=== PATIENT | male | born 1965 | race Caucasian/White ===

== ENCOUNTER → 2016-04-06 | Day surgery (SDC) | payer OTHER ==
[~2016-04-06] MED LIST: LIDOCAINE 1% INJ-PF (10 MG/ML) 30 ML SDV ONE
== END ==
LOC: RAD 12:31
PROVIDERS: ATTEND Orthopaedic Surgery
DX: S43.432A Superior glenoid labrum lesion of left shoulder, initial encounter (principal); X58.XXXA Exposure to other specified factors, initial encounter
CPT/HCPCS: 73222; 73040; 77002; A9576; J3490

== ENCOUNTER → 2017-08-31 | Day surgery (SDC) | payer OTHER ==
--- NOTE | 2017-08-31 14:02 | RADIOLOGY REPORT (SQ) ---
EXAM DESCRIPTION: ARTHRO SHOULDER INJECTION; FLUORO/NEEDLE PLACEMENT COMPLETED DATE/TIME: 08/31/2017 1:44 pm REASON FOR STUDY: COMPLETE ROTATOR CUFF TEAR OR RUPTURE OF LEFT SHOULDER (M75.122) M75.22 BICIPITAL TENDINITIS, LEFT SHOULDER COMPARISON: 04/06/2016 FLUOROSCOPY TIME: 18 seconds 2 digital radiographic images saved to PACS. LIMITATIONS: None. PROCEDURE: Procedure, risks, benefits and alternatives explained to patient who then gave written co nsent. The posterior left glenohumeral joint was marked and a time out was called for correct procedu re verification. Posterior entry site marked using fluoroscopic guidance. Shoulder prepped and drap ed using sterile technique. Local anesthesia achieved using 4 mL of 1% lidocaine injection. 22 gaug e spinal needle introduced into the joint space under direct fluoroscopic visualization. Non-ionic co ntrast instilled to confirm intra-articular position. Dilute gadolinium solution then injected. Need le removed and entry site covered with sterile bandage. No immediate complications noted. TECHNIQUE: Digital images acquired during fluoroscopy and stored on PACS. Patient immediately take n to the MR suite for additional imaging. INJECTION LOCATION: Left posterior glenohumeral joint CONTRAST TYPE AND AMOUNT: 0.5 mL of Isovue-300 was injected to confirm intra-articular needle placeme nt followed by 10 mL of dilute Prohance/Saline mixture. IMPRESSION: SUCCESSFUL NEEDLE PLACEMENT AND INJECTION FOR LEFT SHOULDER MR ARTHROGRAM USING POSTERIO R APPROACH. COMMENT: Quality ID 145: Final reports for procedures using fluoroscopy that document radiation exp osure indices, or exposure time and number of fluorographic images (if radiation exposure indices are not available) TECHNICAL DOCUMENTATION: JOB ID: [id number] [email or web address]- All Rights Reserved Reading location - IP/workstation name: [email or web address]
--- NOTE | 2017-08-31 14:03 | RADIOLOGY REPORT (SQ) ---
EXAM DESCRIPTION: ARTHRO SHOULDER INJECTION; FLUORO/NEEDLE PLACEMENT COMPLETED DATE/TIME: 08/31/2017 1:44 pm REASON FOR STUDY: COMPLETE ROTATOR CUFF TEAR OR RUPTURE OF LEFT SHOULDER (M75.122) M75.22 BICIPITAL TENDINITIS, LEFT SHOULDER COMPARISON: 04/06/2016 FLUOROSCOPY TIME: 18 seconds 2 digital radiographic images saved to PACS. LIMITATIONS: None. PROCEDURE: Procedure, risks, benefits and alternatives explained to patient who then gave written co nsent. The posterior left glenohumeral joint was marked and a time out was called for correct procedu re verification. Posterior entry site marked using fluoroscopic guidance. Shoulder prepped and drap ed using sterile technique. Local anesthesia achieved using 4 mL of 1% lidocaine injection. 22 gaug e spinal needle introduced into the joint space under direct fluoroscopic visualization. Non-ionic co ntrast instilled to confirm intra-articular position. Dilute gadolinium solution then injected. Need le removed and entry site covered with sterile bandage. No immediate complications noted. TECHNIQUE: Digital images acquired during fluoroscopy and stored on PACS. Patient immediately take n to the MR suite for additional imaging. INJECTION LOCATION: Left posterior glenohumeral joint CONTRAST TYPE AND AMOUNT: 0.5 mL of Isovue-300 was injected to confirm intra-articular needle placeme nt followed by 10 mL of dilute Prohance/Saline mixture. IMPRESSION: SUCCESSFUL NEEDLE PLACEMENT AND INJECTION FOR LEFT SHOULDER MR ARTHROGRAM USING POSTERIO R APPROACH. COMMENT: Quality ID 145: Final reports for procedures using fluoroscopy that document radiation exp osure indices, or exposure time and number of fluorographic images (if radiation exposure indices are not available) TECHNICAL DOCUMENTATION: JOB ID: [id number] [employer]- All Rights Reserved Reading location - IP/workstation name: [email or web address]
--- NOTE | 2017-08-31 15:27 | RADIOLOGY REPORT (SQ) ---
EXAM DESCRIPTION: MRI LT UPPER JOINT WITH COMPLETED DATE/TIME: 08/31/2017 2:15 pm REASON FOR STUDY: COMPLETE ROTATOR CUFF TEAR OR RUPTURE OF LEFT SHOULDER (M75.122) M75.22 BICIPITAL TENDINITIS, LEFT SHOULDER COMPARISON: MRI left shoulder 04/06/2016 TECHNIQUE: Left shoulder images acquired and stored on PACS. Multiplanar imaging to include fat sens itive sequences such as T1, water sensitive sequences such as FST2/STIR, cartilage sensitive sequence s such as FSPD/gradient-echo sequences. LIMITATIONS: None. FINDINGS: BONE MARROW AND CORTEX: A band of edema is present along the left humeral head greater tub erosity worrisome for nondisplaced fracture. This is best shown on axial image 8, coronal image 11, and sagittal image 3. JOINT OR BURSAL EFFUSION: Arthrogram contrast in the glenohumeral joint space without leakage into th e subacromial/ subdeltoid bursa. There is fluid in the subdeltoid bursa without contrast, indicating mild bursitis GLENO-HUMERAL ARTICULATION: Normal articulation. No subluxation. No cystic change. No osteophytes or cartilage loss. ACROMION AND AC JOINT: Type 4 acromion with synovial thickening and mild bony spurring. This narrow s the subacromial space. Small subacromial/subdeltoid bursal effusion ROTATOR CUFF AND INTERVAL: There is diffuse high signal throughout the distal supraspinatus and infra spinatus tendons at the greater tuberosity from diffuse tendinopathy. Undersurface irregularity is p resent, best shown on sagittal images 2-7 and coronal images 7 through 12. There is a tack anchoring the anterior edge infraspinatus tendon to the greater tuberosity. Rotator interval grossly intact LABRUM AND BICEPS LABRAL COMPLEX: Intra-articular long head biceps tendon is very small, there is a rtifact over the proximal humerus likely from tenodesis. Small superior labral tear extending anteri stacey and posteriorly on axial images 6-9. REMAINDER OF LABRUM AND IGHL : No gross tear or paralabral cyst formation. Labral evaluation is less than optimal without joint distention. No thickening of IGHL to suggest adhesive capsulitis. PERIARTICULAR AND ADJACENT SOFT TISSUES: No masses or abnormal nodes. OTHER: No other significant finding. IMPRESSION: Bandlike area of marrow edema over the greater tuberosity left humeral head, question tr auma with hairline nondisplaced fracture. Diffuse supra and infraspinatus tendinopathy with high signal and irregularity along its undersurface . Acromioclavicular joint hypertrophy with narrowing of the subacromial space. Small amount of fluid i n the subacromial/subdeltoid bursa Long head biceps tendon anchoring in the upper arm. Small superior labral tear unchanged TECHNICAL DOCUMENTATION: JOB ID: [id number] [employer]- All Rights Reserved Reading location - IP/workstation name: [facility]
== END ==
LOC: RAD 12:47
PROVIDERS: ATTEND Orthopaedic Surgery
DX: M75.122 Complete rotator cuff tear or rupture of left shoulder, not specified as traumatic (principal); M75.22 Bicipital tendinitis, left shoulder
CPT/HCPCS: 73222; 77002; 23350; A9576